=== PATIENT | male | born 1955 | race Caucasian/White ===

== ENCOUNTER 2020-05-20 17:22 | Emergency (ER) | payer BC ==
[2020-05-20] MEDS: Metoprolol Tartrate 50 MG Tab PO ONE (18:10)
[2020-05-20] MEDS: methylPREDNISolone Acetate 80 MG/ML SDV IARTIC ONE (18:10)
[2020-05-20] MEDS: Lisinopril 10 MG Tab PO ONE (18:10)
--- NOTE | 2020-05-20 18:10 | EDM.PDOC ---
ED HPI GENERAL MEDICAL PROBLEM - General Chief Complaint: Cardiovascular Problem Stated Complaint: VISIT PER Time Seen by Provider: 05/20/20 17:50 Source of Information: Reports: Patient, Old Records, Provider, RN History Limitations: Reports: No Limitations - History of Present Illness INITIAL COMMENTS - FREE TEXT/NARRATIVE: 64 yo male with bilateral shoulder pain that is chronic. He presented to the clinic today for this problem and his BP was high and he had an irregular heart rhythm so an EKG was done and he was referred to the ER to make sure that he did not have a cardiac problem. Pawan states that his R shoulder is slightly worse than his left. The EKG showed some ST depression in the anterior leads V2-V4. Pawan denies CP or SOB or nausea. 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) Associated Symptoms: Denies: Diaphoresis, Nausea/Vomiting, Shortness of Breath Treatments COOK PIE: Reports: Other (see below) (none) Shoulder Pain Score (Numeric/FACES): 4 - Related Data Allergies Allergy/AdvReac Type Severity Reaction Status Date / Time simvastatin Allergy Muscle Verified 03/11/20 08:20 Aches [id number]-[id number] Reductase Allergy Muscle Verified 03/11/20 08:21 Inhibitor Aches Home Meds: Home Meds Metoprolol Succinate 25 mg PO DAILY 03/11/20 [History] Montelukast [Singulair] 10 mg PO DAILY 03/11/20 [History] lisinopriL [Prinivil] 30 mg PO DAILY 03/11/20 [History] metFORMIN [Glucophage] 1,000 mg PO WITHDINNER 03/11/20 [History] Metoprolol Succinate 100 mg PO DAILY #30 tab.er.24h 05/20/20 [Rx] glipiZIDE [Glucotrol] 5 mg PO BEDTIME 05/20/20 [History] lisinopriL [Lisinopril] 40 mg PO DAILY #30 tablet 05/20/20 [Rx] Past Medical History HEENT History: Reports: Impaired Vision Cardiovascular History: Reports: Bypass, Hypertension Musculoskeletal History: Reports: Other (See Below) Other Musculoskeletal History: joint pain Neurological History: Reports: Concussion Endocrine/Metabolic History: Reports: Diabetes, Type II - Infectious Disease History Infectious Disease History: Reports: Chicken Pox - Past Surgical History GI Surgical History: Reports: Cholecystectomy Social & Family History - Tobacco Use Tobacco Use Status *Q: Never Tobacco User - Caffeine Use Caffeine Use: Reports: Coffee - Recreational Drug Use Recreational Drug Use: No ED ROS GENERAL - Review of Systems Review Of Systems: See Below Constitutional: Reports: No Symptoms HEENT: Reports: No Symptoms Respiratory: Reports: No Symptoms Cardiovascular: Reports: No Symptoms GI/Abdominal: Reports: No Symptoms : Reports: No Symptoms Musculoskeletal: Reports: Shoulder Pain (bilateral) Skin: Reports: No Symptoms Neurological: Reports: No Symptoms Psychiatric: Reports: No Symptoms ED EXAM, GENERAL - Physical Exam Exam: See Below Exam Limited By: No Limitations General Appearance: Alert, WD/WN, No Apparent Distress Eye Exam: Bilateral Eye: Normal Inspection Ears: Normal External Exam, Normal Canal, Hearing Grossly Normal, Normal TMs Ear Exam: Bilateral Ear: Auricle Normal, Canal Normal, TM normal Nose: Normal Inspection, No Blood Throat/Mouth: Normal Inspection, Normal Lips, Normal Oropharynx, Normal Voice, No Airway Compromise Head: Atraumatic, Normocephalic Neck: Normal Inspection Respiratory/Chest: No Respiratory Distress, Lungs Clear, Normal Breath Sounds, No Accessory Muscle Use Cardiovascular: Regular Rate, Rhythm, No Edema GI/Abdominal: Normal Bowel Sounds, Soft, Non-Tender, No Distention Back Exam: Normal Inspection. No: CVA Tenderness (R), CVA Tenderness (L) Extremities: Normal Inspection, Normal Range of Motion, Non-Tender, No Pedal Edema, Other (bilaterally tender over the AC joints) Neurological: Alert, Oriented, CN II-XII Intact, Normal Cognition, No Motor/Sensory Deficits Psychiatric: Normal Affect, Normal Mood Skin Exam: Warm, Dry, Intact, Normal Color, No Rash ED CARDIOLOGY PROCEDURES - Additional/Other Procedure(s) Other (Free Text) Procedure(s): Injected each AC joint with 40 mg of Depomedrol. #1 Interpretation EKG Date: 05/20/20 Time: 15:35 Rhythm: NSR Rate (Beats/Min): 89 [place]: Normal P-Wave: Present QRS: Normal ST-T: Depressed (V1-V4) QT: Normal Comparison: NA - No Prior EKG Course - Vital Signs Last Recorded V/S: Last Vital Signs Temp 36.7 C 05/20/20 17:52 Pulse 82 05/20/20 18:10 Resp 11 L 05/20/20 17:52 BP 179/91 H 05/20/20 18:10 Pulse Ox 97 05/20/20 17:52 - Orders/Labs/Meds Labs: Laboratory Tests 05/20/20 05/20/20 Range/Units 18:09 18:09 WBC 7.9 (4.5-11.0) K/uL RBC 4.48 (4.30-5.90) M/uL Hgb 12.9 (12.0-15.0) g/dL Hct 40.3 (40.0-54.0) % MCV 90 (80-98) fL MCH 29 (27-31) pg MCHC 32 (32-36) % Plt Count 353 (150-400) K/uL Sodium 141 (140-148) mmol/L Potassium 4.3 (3.6-5.2) mmol/L Chloride 103 (100-108) mmol/L Carbon Dioxide 27 (21-32) mmol/L Anion Gap 10.6 (5.0-14.0) mmol/L BUN 22 H (7-18) mg/dL Creatinine 0.8 (0.8-1.3) mg/dL Est Cr Clr Drug Dosing 94.51 mL/min Estimated GFR (MDRD) > 60 (>60) Glucose 139 H (74-106) mg/dL Calcium 9.5 (8.5-10.1) mg/dL Troponin I < 0.017 (0.000-0.056) ng/mL Meds: Medications Discontinued Medications Generic Name Dose Route Start Last Admin Trade Name Freq PRN Reason Stop Dose Admin Aspirin 324 mg 05/20/20 18:13 05/20/20 18:17 Aspirin 81 Mg Tab.Chew PO 05/20/20 18:14 324 mg ONETIME ONE Administration Lisinopril 10 mg 05/20/20 18:01 05/20/20 18:10 Lisinopril 10 Mg Tab PO 05/20/20 18:02 10 mg ONETIME ONE Administration Methylprednisolone Acetate 80 mg 05/20/20 18:03 05/20/20 18:10 Methylprednisolone Acetate 80 Mg/Ml Sdv IARTIC 05/20/20 18:04 80 mg ONETIME ONE Administration Metoprolol Tartrate 50 mg 05/20/20 18:02 05/20/20 18:10 Metoprolol Tartrate 50 Mg Tab PO 05/20/20 18:03 50 mg ONETIME ONE Administration Departure - Departure Time of Disposition: 19:10 Disposition: Home, Self-Care 01 Condition: Fair Clinical Impression: Bilateral acromioclavicular joint arthritis, HTN, goal below 140/80 Prescriptions: lisinopriL [Lisinopril] 40 mg PO DAILY #30 tablet Metoprolol Succinate 100 mg PO DAILY #30 tab.er.24h Instructions: Hypertension, Adult, [id number] Referrals: Sherita Dickerson PA [Primary Care Provider] - Forms: ED Department Discharge Additional Instructions: Increase your metoprolol succinate starting tomorrow to 100 mg daily. Increase your lisinopril starting tomorrow to 40 mg daily. Take a baby aspirin daily if not already with a meal. Recheck of your BP in the clinic the end of the week. You may use acetaminophen up to 1000 mg every 6 hrs for your shoulder pain. Sepsis Event Note (ED) - Evaluation Sepsis Screening Result: No Definite Risk - Focused Exam Vital Signs: Vital Signs Temp Pulse Pulse Resp BP BP Pulse Ox 05/20/20 18:10 82 179/91 H 05/20/20 17:52 36.7 C 83 11 L 213/100 H 97
[2020-05-20] MEDS: Aspirin 81 MG Tab.Chew PO ONE (18:17)
== END 2020-05-20 19:24 | disposition home or self-care (01) ==
LOC: JP.ED 17:22
DX: M19.012 Primary osteoarthritis, left shoulder (principal); M19.011 Primary osteoarthritis, right shoulder; I10 Essential (primary) hypertension; E11.9 Type 2 diabetes mellitus without complications; Z88.8 Allergy status to other drugs, medicaments and biological substances; Z79.84 Long term (current) use of oral hypoglycemic drugs
CPT/HCPCS: 20605; 36415; 80048; 84484; 85027; 99283; A9270; J1040